=== PATIENT | male | born 1950 | race African-American/Black ===

== ENCOUNTER 2022-04-17 11:09 | Outpatient (CLI) | payer MEDICARE, BC, SELFPAY ==
[2022-04-17 22:05] LABS: Albumin* 4.1 g/dL (3.3-5.0); Chloride* 104 mmol/L (96-114); Potassium* 3.9 mmol/L (3.6-5.1); Sodium* 137 mmol/L (135-149)
[2022-04-17 22:07] LABS: Cholesterol* 167 mg/dL (90-199)
[2022-04-17 22:08] LABS: Alanine Aminotransferase* 15 U/L (4-50); Alkaline Phosphatase* 150 U/L (40-150); Aspartate Amino Transferase* 22 U/L (12-35); Bilirubin Total* 0.2 mg/dL (0.1-1.5); Blood Urea Nitrogen* 50 mg/dL (7-30); Carbon Dioxide* 23 mmol/L (20-32); Creatinine* 2.9 mg/dL (0.5-1.5); Estimated Glomerular Filt Rate 22 ml/min; Glucose* 335 mg/dL (60-115); Total Protein* 6.5 g/dL (6.0-8.3)
[2022-04-17 22:09] LABS: HDL Cholesterol* 34 mg/dL (>=40); LDL Cholesterol Calculated 51 mg/dL (<100)
[2022-04-17 22:19] LABS: Triglycerides* 411 mg/dL (40-149)
[2022-04-17 22:24] LABS: Microalbumin Creatinine Ratio 10 mg/g (0-30); Microalbumin Urine 1 mg/dL
== END 2022-04-17 11:10 | disposition home or self-care (01) ==
PROVIDERS: PCP Family Medicine; Visit Provider Family Medicine
DX: Z00.00 Encounter for general adult medical examination without abnormal findings (principal); D64.9 Anemia, unspecified; E11.40 Type 2 diabetes mellitus with diabetic neuropathy, unspecified; I10 Essential (primary) hypertension; N18.9 Chronic kidney disease, unspecified; E55.9 Vitamin D deficiency, unspecified; Z13.6 Encounter for screening for cardiovascular disorders
CPT/HCPCS: 80053; 80061; 82043; 82570

== ENCOUNTER 2022-05-21 14:45 | Outpatient (RCR) | payer MEDICARE, BC, SELFPAY ==
--- NOTE | 2022-04-25 13:33 | PT.OPE ---
PT [place] [facility] Eval PT [facility] Eval Start: 04/25/22 10:18 Freq: Status: Active Protocol: Document 04/25/22 10:29 BMS (Rec: 04/25/22 10:52 BMS [id number]) E-signed By Carolee Hawk PT Physical Therapy Outpatient Evaluation Insurance Information Recert Due Date 07/23/22 Insurance Name Medicare B,Blue Cross/Blue Shield Medical Diagnosis peripheral neuropathy G62.9 Treating Diagnosis abnormal gait R26.89 peripheral neuropathy G64 ataxia Subjective Subjective patient reports chronic worsening of gait and stability culmunating in recent event in which he bought and electric bike and was not steady enough to ride it. 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 States his chiropractor told him he needs to lose abdominal weight to help his back also. 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 Has been seen for hip and back in past, had back surgery L4-5 in 2020 due to back pain but doesnt remember what kind of surgery. Notes some memory loss and is observed to have difficulty with word finding and initiation. 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 have: Burning B feet 10-15 years, gabapentin, Can feel feet ? very careful w walking, Have cane normally wouldn?t use it, Standing and walking pain, standing up from bending forward ? go to chiro, Stairs in home hold onto rail. Railings B go to gym regional sales trainer [employer]. 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 552 Mixed anxiety depressive disorder (Acute) F41.8 Memory loss (Acute) R41.3 Knee pain (Acute) M25.569 Hypertension (Acute) I10 Hyperlipidemia (Acute) E78.5 Gastroesophageal reflux disease (Acute) K21.9 Fatigue (Acute) R53.83 *Enrolled in chronic care management (Acute) Z78.9 *Diabetes mellitus with diabetic neuropathy (Acute) E11.40 Cough (Acute) R05.9 Cobalamin deficiency (Acute) E53.8 Chronic kidney disease (Acute) N18.9 Bilateral dry eyes (Acute) H04 .123 Benign prostatic hyperplasia ( Acute) N40.0 Back pain (Acute) M54.9 Anxiety (Acute) F41.9 Anemia (Acute 08/2017) D64.9 Abdominal pain (Acute) R10.9 Therapy Limitations/Systems Review Affect,Cognition,Hearing,Other Medical Problem Objective Range of Motion knee ext restricted due to HS tightness, calf tightness, able to get to 0 passively buzz R need overpressure. tightness through hip flexors and quad, SLR limited. Will test few fingers high. flex limited by balance, Strength MMT seated B LE R HS 4-/5 Rest 5/5. Palpation thick tissues of calf Balance & Gait GAIT: wide base, slowed pace, forward flex at waist. short staggered steps, no festination noted this date. COG in front of body. uses modified steppage gait at times. BALANCE: unable to tandem stance w L posterior - results in fall to L requiring total assist of therapist and also patient arm on wall to stop. short stride length with midfoot strike. Demo hesitation for processing before initiation of gait or sit/ stand activity. R tandem 'wobbly' unsteady with use of all ankle knee and hip strategies, does not utilize step strategy when off balance rather continues to fall, attempts to catch self with UE on nearest surface. Labile surface - NBOS steady ( EO), EC increased sway but able to correct. Marching requires heavy assist of B UE. SLS unable B even with heavy use UE B Posture head forward, trunk flexion bringing COG in front of hips. wider base of support B pronation (R worse than L) with increased R genu valgus. B ER, poss tibial torsion further exam to follow weight more toward MTP than heels, also tends to lean toward left and does melt with prolonged standing Other/Pertinent Objective Plops w sit- decreased eccentric control forward lean chest Lip tremor Functional Test Performed & Score sit/ stand 5x = 20 sec Tinetti 14/28 = high fall risk Assessment Assessment/Impression Patient is very pleasant 72 y. o. male referred for peripheral neuropathy. He indicates ongoing burning sensation in B LE with history of imbalance that is worsening, noted most recently when trying to ride his new electric bike he bought for fitness to help manage chronic conditions of diabetes, blood pressure etc. He does work out with a regional sales trainer at [employer] and has had physical therapy in the past, is planning to move to [place] after and wants to improve his ability to walk (used to walk 1-2 miles a day, now limited to across parking lot), to ascend/descend stairs safely with less reliance on rails, to be able to ride his new bike (balance and strength) and to be able to fully participate in his activities without onset of significant fatigue. He does also have low back pain that inhibits participation in activities and impairs ability to stand upright. He is appropriate for skilled physical therapy to address above limitations. Memory is impaired per patient report, and therapist observerd several occasions of difficulty with word finding and processing, as well as delayed motor initiaiton. There also appears to be mild ataxia with LAQ and some of his motions demo mild dysmetria. decreased proximal stability creating difficulty with peripheral movements and stability in stance and gait. Back pain may impact participation and may require modification of ex in order to work towards tolerating activity and reducing muscular inhibition. Primary Functional Limitations initiation of gait and balance , increased fall risk, decreased endurance and proximal strength, unable to ride bike for fitness, unable to walk for fitness, back pain , impaired bed mobility. Plan of Care Rehabilitation Potential Good Rehabilitation Potential Comments very motivated, multiple comorbidities. Physical Therapy Goals 1) Patient demo I with home program for core and limb strength, stability, and home management for maximal safety and decreased fall risk. 2) Pt able to get on/off his new electric bike without incidence. 3) Pt demo ability to balance on his bike for fitness, weight loss to manage chronic conditions. 4) Pt demo appropriate balance reactions with internal and external perturbations. 5) Pt demo ability to ambulate 1000' with no or least restrictive gait aid, without loss of balance or deterioration of gait/ posture for community ambulation and self management with travel to [place]. 6) Pt demo I navigation of stairs for ability to navigate home without fear of fall 7) Pt demo imrpoved bed mobility Coordination/Communication With Referral Source Treatment Plan/Direct Interventions Gait Training,Ice/Cold/ Vasopneumatic,Manual Therapy, Neuromuscular Re-ed,Self-Care/ Home Management,Therapeutic Activities,Therapeutic Exercises Frequency/Duration 1-2x/ week x 6-8 weeks, then patient leaves for winter in [place] Patient Will Be Discharged From Therapy Completion of LTG(s),Skills Plateau,Independent w/HEP, Independently Progressing Evaluation Billing Untimed Code Treatment Minutes 40 Complexity Moderate Certification Information Initial Certification Date 04/25/22 Ending Certification Date 07/23/22 Provider Signature Shows Agreement With POC & Medical Necessity Physician Signature & Date Requested Please Sign/Date Here Physician Comment/Change : Physician NPI Number #
--- NOTE | 2022-05-23 13:38 | ONC.NURNOTE ---
Patient referral was sent. On form talked about iron infusion and hematology visit. Lead Network Architect contacted the office yesterday about this and received call back from Maite with Dr. Wallis stating that patient is just to receive iron infusion. Orders are on Dr. Garcia desk waiting to be signed, once signed they will send. Referral to be disregarded.
--- NOTE | 2022-05-29 15:01 | ONC.NURNOTE ---
Dx: Iron Deficiency Anemia
== END 2022-08-21 16:22 | disposition home or self-care (01) ==
PROVIDERS: PCP Family Medicine; Referring Provider Family Medicine; Visit Provider Family Medicine
DX: G62.9 Polyneuropathy, unspecified (principal); Z51.89 Encounter for other specified aftercare
CPT/HCPCS: 70551; 97110; 97112; 97162

== ENCOUNTER 2023-01-21 13:00 | Outpatient (RCR) | payer MEDICARE, BC, SELFPAY ==
[2023-01-14 14:00] VITALS: BP 85/44; PULSE 65; RESP 16; TEMP 35.9; O2SAT 96
[2023-01-14 14:00] LABS: Iron* 32 ug/dL (49-181)
[2023-01-14 14:05] VITALS: BP 99/65
[2023-01-14 14:09] LABS: Percent Iron Saturation 8 % (20-50); Total Iron Binding Capacity 384 ug/dL (261-462)
[2023-01-14] MEDS: FERRIC CARBOXYMALTOSE 750 MG in 0.9 % SODIUM CHLORIDE 250 ml 250 ML 1060 MG IVPB (14:19)
[2023-01-14 14:36] LABS: Ferritin* 8.4 ng/mL (17.9-464.0)
[2023-01-14 15:10] VITALS: BP 124/61
[2023-01-14 15:12] VITALS: BP 108/62
[2023-01-21 13:19] VITALS: BP 125/61; PULSE 60; RESP 16; TEMP 35.6; O2SAT 99
[2023-01-21] MEDS: FERRIC CARBOXYMALTOSE 750 MG in 0.9 % SODIUM CHLORIDE 250 ml 250 ML 1060 MG IVPB (13:43)
== END 2023-07-13 23:59 | disposition home or self-care (01) ==
LOC: CCIC 13:00
PROVIDERS: PCP Family Medicine; Referring Provider Family Medicine; Visit Provider Clinical Nurse Specialist
DX: N18.4 Chronic kidney disease, stage 4 (severe) (principal); D63.1 Anemia in chronic kidney disease
CPT/HCPCS: 36415; 82728; 83540; 83550; 96374; 96409; J1439; J7050

== ENCOUNTER 2023-03-27 09:03 | Outpatient (CLI) | payer MEDICARE, BC, SELFPAY | END 2023-03-27 09:04 | disposition home or self-care (01) | LOC: NFLDREF 04-05 11:29 | PROVIDERS: PCP Family Medicine; Referring Provider Family Medicine; Visit Provider Family Medicine | DX: D63.1 Anemia in chronic kidney disease (principal); E66.01 Morbid (severe) obesity due to excess calories; N18.4 Chronic kidney disease, stage 4 (severe); N18.9 Chronic kidney disease, unspecified; D50.9 Iron deficiency anemia, unspecified; N40.1 Benign prostatic hyperplasia with lower urinary tract symptoms; Z79.899 Other long term (current) drug therapy | CPT/HCPCS: 80053; 80061; 82607; 82728; 83540; 84153 ==

== ENCOUNTER 2023-04-16 11:29 | Outpatient (CLI) | payer MEDICARE, BC, SELFPAY ==
--- OUTSIDE RECORDS SUMMARY | 2023-04-16 11:34 | XMS_ITS | Continuity of Care Document ---
Author Name Unknown Organization [facility] Address 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 [address] [place], [place], [id number], [place]. tel:[phone] Family History Family Member Type Diagnosis Age At Onset No Information Payers Payer name Insurance type Covered democrat ID Authoriza tion(s) No Information Social History Type Description Quantity Date Captured Comments Sex Male Smoking Status No Information Chief Complaint And Reason For Visit No Information Reason For Referral Reason For Referral No Information History Of Present Illness Encounter Date Complaint History Of Prese nt Illness No Information Functional Status Date Functional Assessmen t No Information Instructions Date Instruction Additional Infor mation No Information Assessments Type Assessment Date No Information Patient Care Teams Name Effective Dates (start - stop) Status Members No Information
--- NOTE | 2023-04-16 11:54 | W.ANESCHARGE ---
Anesthesia Charges Start Date/Time Anesthesia Start Date: 04/16/23 Anesthesia Start Time: 12:05 Stop Date/Time Anesthesia Stop Date: 04/16/23 Anesthesia Stop Time: 12:55 Summary Extremes of Age - Over 70 or under 1: MDA
--- NOTE | 2023-04-16 13:08 | W.ANESCHARGE ---
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
== END 2023-04-16 11:30 | disposition home or self-care (01) ==
LOC: OP CLINIC 11:32
PROVIDERS: PCP Family Medicine; Visit Provider Surgery
DX: Z12.11 Encounter for screening for malignant neoplasm of colon (principal); K63.5 Polyp of colon; K57.30 Diverticulosis of large intestine without perforation or abscess without bleeding; Z86.010 Personal history of colon polyps
CPT/HCPCS: 00811; 45380; 45385; 88305; 99100; J2704